=== PATIENT | female | born 1995 | race Caucasian/White ===

== ENCOUNTER 2022-08-19 17:01 | Emergency (ER) | payer OTHER, SELFPAY ==
--- NOTE | ~2022-08-19 | CT_ITS ---
EXAMINATION: CT HEAD WITHOUT CONTRAST CT CERVICAL SPINE WITHOUT CONTRAST CLINICAL INFORMATION: Fall, positive LOC, rule out skull fracture, bleed, ETOG, neck tender COMPARISON: None. TECHNIQUE: Imaging was performed from the skull base to vertex without intravenous administration of contrast. In addition, helical noncontrast CT imaging was acquired through the cervical spine and source images were reviewed along with axial reconstructions and sagittal and coronal MPRs. [This CT examination was performed using dose optimization techniques as appropriate, variously including the following: *Automated exposure control *Adjustment of mA and/or kV according to patient size (this includes techniques or standardized protocols for targeted exams where dose is matched to indication/reason for exam; i.e. extremities or head) *Use of iterative reconstruction technique] DLP: 1380 mGy-cm FINDINGS: HEAD: No intracranial mass, hemorrhage, or midline shift is visualized. The ventricles and sulci are proportional. No extra-axial collections are identified. The paranasal sinuses and mastoid air cells are well aerated. CERVICAL SPINE: There is no evidence of acute cervical spine fracture. Vertebral bodies remain normal in height. Cervical vertebrae have normal alignment. Cervical disc heights are normal. Facet joints are normal. No pre- or paravertebral soft tissue abnormality is identified. Limited assessment of the lung apices is unremarkable. CT/CT cervical spine wo IV con IMPRESSION: 1. No acute intracranial pathology. 2. No CT evidence of acute cervical spine fracture or traumatic subluxation
--- NOTE | ~2022-08-19 | CT_ITS ---
EXAMINATION: CT HEAD WITHOUT CONTRAST CT CERVICAL SPINE WITHOUT CONTRAST CLINICAL INFORMATION: Fall, positive LOC, rule out skull fracture, bleed, ETOG, neck tender COMPARISON: None. TECHNIQUE: Imaging was performed from the skull base to vertex without intravenous administration of contrast. In addition, helical noncontrast CT imaging was acquired through the cervical spine and source images were reviewed along with axial reconstructions and sagittal and coronal MPRs. [This CT examination was performed using dose optimization techniques as appropriate, variously including the following: *Automated exposure control *Adjustment of mA and/or kV according to patient size (this includes techniques or standardized protocols for targeted exams where dose is matched to indication/reason for exam; i.e. extremities or head) *Use of iterative reconstruction technique] DLP: 1380 mGy-cm FINDINGS: HEAD: No intracranial mass, hemorrhage, or midline shift is visualized. The ventricles and sulci are proportional. No extra-axial collections are identified. The paranasal sinuses and mastoid air cells are well aerated. CERVICAL SPINE: There is no evidence of acute cervical spine fracture. Vertebral bodies remain normal in height. Cervical vertebrae have normal alignment. Cervical disc heights are normal. Facet joints are normal. No pre- or paravertebral soft tissue abnormality is identified. Limited assessment of the lung apices is unremarkable. CT/CT head/brain wo IV con IMPRESSION: 1. No acute intracranial pathology. 2. No CT evidence of acute cervical spine fracture or traumatic subluxation
[2022-08-19 17:08] VITALS: BP 119/58; BP 160/90; PULSE 114; PULSE 30; RESP 19; O2SAT 99; BMI 47.9
--- NOTE | 2022-08-19 17:52 | ED.ALCOHOL ---
HPI - Alcohol General Chief Complaint: ETOH/Substance Use Stated Complaint: anxiety Time Seen by Provider: 08/19/22 17:45 Source: patient, family (Pat, grandmother) and other (Friend, Maliha) Mode of arrival: EMS Limitations: other (Anxiety) History of Present Illness HPI narrative: 27-year-old female who was brought to emergency department by ambulance for evaluation alcohol intoxication, fall and panic attack. The patient was at the [employer] and was drinking alcohol. Apparently she fell and struck her head. She then developed a panic attack. The patient's friend, Lokesh who in emergency department with the patient did not witness the fall and is not certain if the patient had loss of consciousness. The patient does have a history of anxiety and panic attacks. The patient's grandmother is here and states that she has had multiple panic attacks in the past but this episode seems to be much worse. The patient is live with her grandmother since she was in 6th grade. The patient denied using any other drugs except for alcohol. Related Data Allergies Allergy/AdvReac Type Severity Reaction Status Date / Time Penicillins Allergy Unknown Verified 08/19/22 17:14 Review of Systems Review of Systems: Past medical history: Depression, anxiety, panic attacks. Social history: She lives with her grandmother who was here in the emergency department with her. She does admit to drinking alcohol. She denies using drugs. [facility] Social History Social History Alcohol intake: current Alcohol intake frequency: holidays/special occasions only Smoked in Last 30 Days: No Use of substances other than those prescribed or required for medical reasons: No Advance Directives: No Advance Directives Information Provided: Yes Patient : No Physical Exam ED Vital Signs: Vital Signs - 24 hr 08/19/22 17:08 08/19/22 18:50 08/19/22 20:39 Temperature 97.4 F Pulse Rate 114 H 96 84 Respiratory Rate 19 16 19 Blood Pressure 119/58 L 109/86 Pulse Oximetry 99 100 97 Oxygen Delivery Method Room Air Room Air Room Air 08/19/22 21:32 Temperature 98 F Pulse Rate 89 Respiratory Rate 14 Blood Pressure 97/49 L Pulse Oximetry 99 Oxygen Delivery Method Room Air BMI result Body Mass Index 47.9 Vital signs were normal. General: The patient is crying, she is tearful, she shaking, she is not answering questions. HEENT: Head is normal cephalic and atraumatic, pupils were equal round reactive light, sclera contact however normal, mouth revealed moist membranes. Neck: No cervical tenderness Chest: No chest wall tenderness Lungs: Clear to auscultation breath sounds symmetric bilaterally Heart: Regular rate rhythm, normal S1-S2, no murmurs rubs or gallops Abdomen: Soft, nontender, nondistended, normoactive bowel sounds Back: No tenderness no CVA tenderness Extremities: She moves all extremities symmetrically Neuro: She is awake she is alert, she is nonverbal, she appears to be anxious, she was all extremities symmetrically Medical Decision Making Medical Decision Making MDM Narrative: 27-year-old female who presents emergency department for evaluation of unwitnessed fall with possible head injury, unknown if there was loss of consciousness who has a history of anxiety and panic attacks who appears to be having a panic attack at this time. The patient did admit to drinking alcohol but denied using drugs pain. Patient's head exam revealed no significant evidence for trauma however given her unwitnessed fall I did order a CT scan of the head and cervical spine. The patient was initially given Ativan 2 mg IM with no improvement of her anxiety/panic attack. She was then treated with Benadryl 50 mg IM and Haldol 5 mg IM with good results. The CT scan of the patient's head and cervical spine revealed no acute findings. The patient is calm, cooperative, she was able to tell me that she did not take any drugs, she is feeling better and will be discharged home in the care of her grandmother. Differential Diagnosis Differential diagnosis includes was not limited to: Concussion, skull fracture, cerebral bleed, service fracture, acute alcohol intoxication, drug intoxication, anxiety attack, panic attack Radiology Impression Discussion of test interpretation with radiology: I have reviewed the radiologist's reading. Radiologist Impression: CT head/brain wo IV con IMPRESSION: 1. No acute intracranial pathology. 2. No CT evidence of acute cervical spine fracture or traumatic subluxation Dictated By:Bharat Zhou MDSigned By:<Electronically signed by Bharat Zhou MD in [place]>08/19/22 [id number] Independent Historian Clinical information obtained from an independent historian. History obtained from or confirmed by: Parent (Grandmother) and Other (Friend Maliha) Medications Administered Discontinued Medications Generic Name Dose Route Start Last Admin Trade Name Freq PRN Reason Stop Dose Admin Diphenhydramine HCl 50 mg 08/19/22 19:05 08/19/22 19:22 Diphenhydramine Hcl 50 Mg/Ml Vial IM 08/19/22 19:06 50 mg ONCE ONE Administration Haloperidol Lactate 5 mg 08/19/22 19:05 08/19/22 19:22 Haloperidol Lactate 5 Mg/Ml Vial IM 08/19/22 19:06 5 mg STAT STA Administration Lorazepam 2 mg 08/19/22 17:51 08/19/22 18:22 Lorazepam 1 Mg Tablet PO 08/19/22 17:52 Not Given ONCE STA Lorazepam 2 mg 08/19/22 18:16 08/19/22 18:22 Lorazepam 2 Mg/Ml Vial IM 08/19/22 18:17 2 mg ONCE ONE Administration Discharge Plan Discharge Clinical Impression: Anxiety attack Alcoholic intoxication Qualifiers: Complication of substance-induced condition: uncomplicated Qualified Code(s): F10.920 - Alcohol use, unspecified with intoxication, uncomplicated Closed head injury Qualifiers: Encounter type: initial encounter Qualified Code(s): S09.90XA - Unspecified injury of head, initial encounter Fall Qualifiers: Encounter type: initial encounter Qualified Code(s): W19.XXXA - Unspecified fall, initial encounter Patient Disposition: Home, Self-Care Instructions: Panic Attack (ED), Alcohol Intoxication (ED), Head Injury (ED) Additional Instructions: The CT scan of your head and neck revealed no skull fracture, no bleeding in the brain and no neck fracture which is reassuring. You were having anxiety attack today. You were treated with Ativan 2 mg IM, Haldol 5 mg IM and Benadryl 50 mg IM. These medications will make you sleepy, home and sleep in do not do anything else tonight. Follow-up with your doctor in 2 days. Please return to the emergency department if your symptoms get worse or if you develop any symptoms that are concerning to you. Interventions: [place]-Suicide Risk Severity Scale Last Done: 08/19/22 21:49
[2022-08-19] MEDS: LORazepam 2 MG/ML VIAL IM (18:22)
--- NOTE | 2022-08-19 18:41 | PC.NURSE ---
pt unable to verbalize at this time. un able to respond to questions. opt unable to keep mouth closed for oral temp and would not hold still for axillary temp - will reattempt when pt more relaxed
[2022-08-19 18:50] VITALS: BP 109/86; PULSE 96; RESP 16; O2SAT 100
--- NOTE | 2022-08-19 19:15 | PC.NURSE ---
assumed care of pt, tearful, screaming, hyperventilating provider aware meds to follow mother at bedside O2Sat 100%, HR 106
[2022-08-19] MEDS: Haloperidol Lactate 5 MG/ML VIAL IM (19:22)
[2022-08-19] MEDS: diphenhydrAMINE HCL 50 MG/ML VIAL IM (19:22)
[2022-08-19 20:39] VITALS: PULSE 84; RESP 19; TEMP 36.3; O2SAT 97
--- NOTE | 2022-08-19 20:42 | PC.NURSE ---
pt sleeping, no apparent distress, mother at bedside, vss
[2022-08-19 21:32] VITALS: BP 97/49; PULSE 89; RESP 14; TEMP 36.6; O2SAT 99
--- NOTE | 2022-08-19 21:52 | PC.NURSE ---
pt resting quietly with mother at bedside, no apparent distress
--- NOTE | 2022-08-19 22:15 | PC.NURSE ---
Discharge instructions given/explained to pt No apparent distress no sob, no respiratory distress aox4 pt left with mother pt ambulates safely/independently
== END 2022-08-19 22:12 | disposition home or self-care (01) ==
PROVIDERS: Emergency Provider Emergency Medicine Emergency Medical Services
DX: F41.9 Anxiety disorder, unspecified (principal); F10.920 Alcohol use, unspecified with intoxication, uncomplicated; S09.90XA Unspecified injury of head, initial encounter; W19.XXXA Unspecified fall, initial encounter; Y93.89 Activity, other specified; Y92.414 Local residential or business street as the place of occurrence of the external cause; Y99.9 Unspecified external cause status
CPT/HCPCS: 70450; 72125; 96372; 99284; J1200; J2060